=== PATIENT | male | born 1960 | race Caucasian/White ===

== ENCOUNTER 2018-01-26 15:44 | Emergency (ER) | payer BC ==
[~2018-01-26] VITALS: Ht 172.7 cm; Wt 70.0 kg
[~2018-01-26 15:44] MED LIST: ASPI81 PO; LIPI40TA PO; LORT5TAB PO; METO25 PO; OMEP20TA PO; PRAS10TA PO
[2018-01-26 16:03] VITALS: BP 109/69; PULSE 72; RESP 17; TEMP 98.3; O2SAT 98
[2018-01-26] MEDS ORDERED: SODIUM CHLOR 0.9% 1000 ML INJ 1,000 ML IV SCH (16:05)
[2018-01-26] MEDS ORDERED: MORPHINE SULFATE 8 MG/ML INJ IV PUSH ONE (16:15)
[2018-01-26] MEDS ORDERED: SODIUM CHLORIDE 0.9% FLUSH 10 ML FLUSH IV FLUSH PRN (16:15)
[2018-01-26] MEDS ORDERED: PROPOFOL 200 MG/20 ML AMP IV ONE (16:15)
--- NOTE | 2018-01-26 16:15 | PD ---
HPI Chief Complaint: Musculoskeletal Complaint Time Seen by Provider: 15:55 Travel History International Travel<30 days: No Contact w/Intl Traveler<30days: No History of Present Illness HPI 57-year-old male arrives with pain in the distal radius. He fell from a ladder about an hour prior to ER arrival. The pain is constant and severe in its worst range of motion. Onset sudden. No other injury to report. The patient takes Plavix for coronary disease. PFSH Past Medical History Blood Disorders: No Heart Rhythm Problems: No Cancer: No Cardiac Catheterization: Yes Cardiovascular Problems: Yes High Cholesterol: Yes Chest Pain: Yes Congestive Heart Failure: No Coronary Artery Disease: Yes Diminished Hearing: No Endocrine: No Genitourinary: No Hypertension: Yes Immune Disorder: No Musculoskeletal: No Neurologic: No Psychiatric: No Reproductive: No Respiratory: No Myocardial Infarction: Yes Tetanus Vaccination: < 5 Years Influenza Vaccination: Yes Past Surgical History Abdominal Surgery: No Cardiac Surgery: No Ear Surgery: No Endocrine Surgery: No Eye Surgery: No Genitourinary Surgery: No Oral Surgery: No Thoracic Surgery: No Social History Alcohol Use: Yes (OCCAS) Tobacco Use: No Substance Use: No Allergies-Medications (Allergen,Severity, Reaction): Coded Allergies: No Known Allergies (Verified Adverse Reaction, Unknown, 01/26/18) Reported Meds & Prescriptions Reported Meds & Active Scripts Active Percocet (Oxycodone-Acetaminophen) 5-325 mg Tab 1-2 Tab PO Q6H PRN Reported Plavix (Clopidogrel Bisulfate) 75 Mg Tab 75 Mg PO DAILY Aricept (Donepezil) 23 Mg Tab 23 Mg PO HS Do not split, crushed or chewed. Aspirin 81 Mg Chew 81 Mg CHEW DAILY Ramipril 2.5 Mg Cap 2.5 Mg PO DAILY Omeprazole 20 Mg Tab 20 Mg PO DAILY Metoprolol Succinate ER 24 HR (Metoprolol Succinate) 25 Mg Tab 25 Mg PO DAILY Lipitor (Atorvastatin Calcium) 40 Mg Tab 40 Mg PO HS Review of Systems Except as stated in HPI: all other systems reviewed are Neg General / Constitutional: No: Fever Physical Exam Narrative GENERAL: 57-year-old male pleasant well-nourished well-developed mild to moderate distress secondary to pain SKIN: Warm and dry. HEAD: Atraumatic. Normocephalic. EYES: Pupils equal and round. No scleral icterus. No injection or drainage. ENT: No nasal bleeding or discharge. Mucous membranes pink and moist. NECK: Trachea midline. No JVD. CARDIOVASCULAR: Regular rate and rhythm. RESPIRATORY: No accessory muscle use. Clear to auscultation. Breath sounds equal bilaterally. GASTROINTESTINAL: Abdomen soft, non-tender, nondistended. Hepatic and splenic margins not palpable. MUSCULOSKELETAL: There is a gross deformity of the distal radius on the right side. Tenderness accompanies the deformity and there is a 2+ radial artery pulse. NEUROLOGICAL: Awake and alert. No obvious cranial nerve deficits. Motor grossly within normal limits. Five out of 5 muscle strength in the arms and legs. Normal speech. PSYCHIATRIC: Appropriate mood and affect; insight and judgment normal. Data Data Last Documented VS Vital Signs Date Time Temp Pulse Resp B/P (MAP) Pulse Ox O2 Delivery O2 Flow Rate FiO2 01/26/18 17:34 64 16 123/67 (85) 98 01/26/18 16:30 2.00 01/26/18 16:03 Room Air 01/26/18 16:03 98.3 Orders Orders Iv Access Insert/Monitor (01/26/18 16:05) Ecg Monitoring (01/26/18 16:05) Oximetry (01/26/18 16:05) Sodium Chlor 0.9% 1000 Ml Inj (Ns 1000 M (01/26/18 16:05) Sodium Chloride 0.9% Flush (Ns Flush) (01/26/18 16:15) Morphine Inj (Morphine Inj) (01/26/18 16:15) Wrist, Complete ([id number]) (01/26/18 16:05) Splint Or Brace Apply/Monitor (01/26/18 16:05) Propofol 200 Mg/20 Ml Inj (Diprivan 200 (01/26/18 16:15) Wrist, Complete ([id number]) (01/26/18 ) ^ Sling (01/26/18 16:38) Ed Discharge Order (01/26/18 17:09) Sling Cradle Arm (01/26/18 ) Fiberglass Sugartong Sp Ad Arm (01/26/18 ) MDM Medical Decision Making Medical Screen Exam Complete: Yes Emergency Medical Condition: Yes Differential Diagnosis Distal radius fracture, dislocation, compartment syndrome Narrative Course First xray: distal radius fracture with dorsal angulation Postreduction x-ray reveals anatomic alignment Sugar tong with sling applied The patient will follow up with Dr. Mason early next week for cast placement Procedures Procedure Narrative After the risks and benefits were discussed the following procedure was performed: MODERATE SEDATION: The patient was placed on a ekg monitor and pulse oximetry. An ambu bag and suction was immediately available at bedside. The patient was monitored by the nurse. Oxygen saturation , heart rate and blood pressure were monitored. Procedural sedation was acheived using Propofol . The patient was observed until awake and alert. Procedural Sedation time in attendance was 15 minutes. DISTAL RADIUS FRACTURE: The distal radius fracture was reduced traction countertraction technique with immediate immobilization. 2+ radial artery pulse bilaterally. Diagnosis Primary Impression: Distal radius fracture, right Qualified Codes: S52.501A - Unspecified fracture of the lower end of right radius, initial encounter for closed fracture Admitting Information Admitting Physician Requests: Observation Referrals: oTi Mason MD 2 days Med/Other Pt SpecificInfo: Prescription(s) given Scripts Oxycodone-Acetaminophen (Percocet) 5-325 mg Tab 1-2 TAB PO Q6H Y for PAIN SCALE 6 TO 10, #15 TAB 0 Refills Prov: Marcelo Warner MD 01/26/18 Disposition: 01 DISCHARGE HOME Condition: Stable Marcelo Warner MD Jan 26, 2018 16:15
[2018-01-26 16:30] VITALS: O2SAT 99
[2018-01-26] MEDS ORDERED: LIPI40TA PO (16:35)
[2018-01-26] MEDS ORDERED: RAMI2.5C PO (16:35)
[2018-01-26] MEDS ORDERED: ARIC23TA PO (16:35)
[2018-01-26] MEDS ORDERED: METO1TAB42 PO (16:35)
[2018-01-26] MEDS ORDERED: OMEP20TA93 PO (16:35)
[2018-01-26] MEDS ORDERED: ASPI-516 CHEW (16:35)
[2018-01-26] MEDS ORDERED: PLAV75TA29 PO (16:35)
[2018-01-26] MEDS ORDERED: PERC5TAB12 PO (16:51)
--- NOTE | 2018-01-26 17:02 | RADRPT ---
EXAM DATE/TIME: 01/26/2018 16:18 [facility] COMPARISON: WRIST RIGHT COMPLETE ([id number]), January 26, 2018, 16:40. INDICATIONS : Pain from fall. MEDICAL HISTORY : None. SURGICAL HISTORY : None. ENCOUNTER: Initial ACUITY: 1 day PAIN SCORE: 10/10 LOCATION: Right wrist. FINDINGS: Impacted fracture distal radius with minimal dorsal angulation. Carpus and ulnar styloid are intact. CONCLUSION: Fracture of distal radius as above. Alex Willis MD FACR on January 26, 2018 at 16:59 Board Certified Radiologist. This report was verified electronically.
--- NOTE | 2018-01-26 17:14 | RADRPT ---
EXAM DATE/TIME: 01/26/2018 16:40 [facility] COMPARISON: WRIST RIGHT COMPLETE ([id number]), January 26, 2018, 16:18. INDICATIONS : Post reduction right wrist. MEDICAL HISTORY : None. SURGICAL HISTORY : None. ENCOUNTER: Subsequent ACUITY: 1 day PAIN SCORE: 5/10 LOCATION: Right wrist. FINDINGS: Anatomic alignment in fiberglass. Fracture distal radius is again seen. Carpus intact in fiberglass . CONCLUSION: Anatomic alignment. Alex Willis MD FACR on January 26, 2018 at 17:11 Board Certified Radiologist. This report was verified electronically.
[2018-01-26 17:34] VITALS: BP 123/67
== END 2018-01-26 17:35 | disposition home or self-care (01) ==
LOC: NEPD 15:44
DX: S52.501A Unspecified fracture of the lower end of right radius, initial encounter for closed fracture (principal); I10 Essential (primary) hypertension; I25.10 Atherosclerotic heart disease of native coronary artery without angina pectoris; I25.2 Old myocardial infarction; E78.00 Pure hypercholesterolemia, unspecified; W11.XXXA Fall on and from ladder, initial encounter; Z79.02 Long term (current) use of antithrombotics/antiplatelets; Z79.82 Long term (current) use of aspirin; Z79.899 Other long term (current) drug therapy
CPT/HCPCS: 25605; 73110; 96361; 96374; 99152; 99285; J2270; J7030